=== PATIENT | female | born 1945 | race Caucasian/White ===

== ENCOUNTER → 2019-03-18 09:37 | Outpatient (CLI) | payer MEDICARE, SELFPAY ==
[2019-03-18 11:03] LABS: Alanine Aminotransferase 20 IU/L (9-52); Aspartate Aminotransferase 23 IU/L (14-36); BUN Creatinine Ratio 26.7 (6-22); Blood Urea Nitrogen 24 mg/dL (7-17); Calcium 9.5 mg/dL (8.4-10.2); Carbon Dioxide 29 mmol/L (22-32); Chloride 104 mmol/L (98-107); Cholesterol 265 mg/dL (140-199); Estimated Glomerular Filt Rate > 60.0 mL/min (>60); Glucose 89 mg/dL (80-110); HDL Cholesterol 50 mg/dL (40-60); HEMOLYSIS < 15 (0-50); LDL Cholesterol Calculated 158 mg/dL (<100); Potassium 4.6 mmol/L (3.4-5.1); Sodium 139 mmol/L (137-145); Triglycerides 284 mg/dL (35-150)
== END ==
PROVIDERS: Visit Provider Internal Medicine Cardiovascular Disease
DX: E78.5 Hyperlipidemia, unspecified (principal); I10 Essential (primary) hypertension
CPT/HCPCS: 36415; 80048; 80061; 84450; 84460

== ENCOUNTER 2019-08-31 18:50 | Emergency (ER) | payer MEDICARE, SELFPAY ==
[2019-08-31 18:58] VITALS: BP 194/67; PULSE 72; RESP 16; TEMP 36.5; O2SAT 99; BMI 27.4
--- NOTE | 2019-08-31 19:00 | DI.RAD.S_ITS ---
PROCEDURE: XR SHOULDER RT MIN 2V INDICATIONS: popped shoulder out lifting TECHNIQUE: 3 views of the shoulder were acquired. COMPARISON: [facility], , SHOULDER MINIMUM 2VIEW RIGHT, 01/21/2014, 15:37. FINDINGS: Bones: No fractures or dislocations. No suspicious bony lesions. Visualized ribs appear intact. Glenohumeral joint degenerative change. Soft tissues: No suspicious soft tissue calcifications. Calcific tendinosis of the supraspinatus region. IMPRESSION: No evidence acute fracture or dislocation. Glenohumeral joint degenerative change. Calcific tendinosis. Dictated by: Marty Parnell M.D. on 08/31/2019 at 19:18 Approved by: Marty Parnell M.D. on 08/31/2019 at 19:22
--- NOTE | 2019-08-31 19:01 | PC.NURSE ---
Pt BP noted to be elevated. reports she did not take her lisinopril or metoprolol today.
--- NOTE | 2019-08-31 19:23 | ED.GENADULT ---
HPI - General Adult General Chief complaint: Extremity Injury, Upper Stated complaint: states she popped her right shoulder out Time Seen by Provider: 08/31/19 18:59 Source: patient Mode of arrival: Ambulatory Limitations: no limitations History of Present Illness HPI narrative: 74-year-old female here for evaluation of right shoulder pain. She states she has injured this shoulder in the past. 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 No specific trauma. No prior surgeries. She states that for some time now her shoulder ?popped out? and when she is able to bend over and do which she describes as pendulum swings to get it to ?go back in ?she is getting some paresthesias down her right arm. Related Data Home Medications Medication Instructions Recorded Confirmed CA PANTOTHENATE/FOLIC ACID/VIT 1 tab PO QDAY #0 12/03/12 (MULTIVITAMIN) loratadine [Claritin] 10 mg PO QDAYP #0 12/03/12 aspirin 81 mg PO QDAY #0 12/17/12 atorvastatin [Lipitor] 40 mg PO HS #0 12/17/12 metoprolol tartrate 25 mg PO BID #0 12/17/12 lisinopril 2.5 mg PO QDAY #0 12/19/12 Allergies Allergy/AdvReac Type Severity Reaction Status Date / Time Pain Medication Allergy Intermediate Nausea and Uncoded 01/17/18 12:24 vomiting CODEINE Allergy Mild N/V DIZZY Uncoded 01/17/18 12:24 From VICODIN Allergy Mild N/V,DIZZY Uncoded 01/17/18 12:24 Review of Systems Constitutional Constitutional: Denies fever(s) Cardiovascular Cardiovascular: Denies chest pain and Denies dyspnea Respiratory Respiratory: Denies dyspnea Musculoskeletal Comments: Right shoulder pain Integumentary/Breasts Skin/Breast: Denies rash Neurologic Comments: Paresthesias down the right arm Hematologic/Lymphatic Hematologic/Lymphatic: Denies easy bleeding and Denies easy bruising Patient History Medical History Heart palpitations (Inactive) Social History marital status: lives independently: Yes Exam Initial Vital Signs Initial Vital Signs: Vital Signs Temperature 97.7 F 08/31/19 18:58 Pulse Rate 72 08/31/19 18:58 Respiratory Rate 16 08/31/19 18:58 Blood Pressure 194/67 H 08/31/19 18:58 Pulse Oximetry 99 08/31/19 18:58 Const General: cooperative and comfortable Orientation: alert, awake and oriented x3 HENMT Head: normal to inspection and normocephalic Resp Effort & Inspection: normal respiratory effort Cardio Rate: regular rate Skin Rashes: no rashes Extrem Other: Patient does have full range of motion of her right shoulder but does have some discomfort with abduction Psych Appearance: grossly normal and well kempt Course Orders Ordered: ED Orders 08/31/19 19:00 XR shoulder RT min 2V Stat Vital Signs Vital signs: Vital Signs - 8 hr 08/31/19 18:58 Temperature 97.7 F Pulse Rate 72 Respiratory Rate 16 Blood Pressure 194/67 H Pulse Oximetry 99 Medical Decision Making Imaging Data Shoulder x-ray: Radiologist's impression: [address] [address] XRay Report Signed Patient: Radha Ordoñez [facility]#: [id number] : 7Acct:[id number] Age/Sex: 74 / FDate of Service: 08/31/19 Loc: ED Accession Number: [id number] Procedure: XR shoulder RT min 2V Ordering Provider: Raza Cheung D.O. PROCEDURE: XR SHOULDER RT MIN 2V INDICATIONS: popped shoulder out lifting TECHNIQUE: 3 views of the shoulder were acquired. COMPARISON: [facility], , SHOULDER MINIMUM 2VIEW RIGHT, 01/21/2014, 15:37. FINDINGS: Bones: No fractures or dislocations. No suspicious bony lesions. Visualized ribs appear intact. Glenohumeral joint degenerative change. Soft tissues: No suspicious soft tissue calcifications. Calcific tendinosis of the supraspinatus region. IMPRESSION: No evidence acute fracture or dislocation. Glenohumeral joint degenerative change. Calcific tendinosis. Dictated by: Marty Parnell M.D. on 08/31/2019 at 19:18 Approved by: Marty Parnell M.D. on 08/31/2019 at 19:22 MDM Narrative Medical decision making narrative: X-ray showed no fractures or dislocations. Patient seems surprised by this. I do suspect given her history that she has soft tissue injury potentially even a labral tear rotator cuff injury. Did inform her that she needed an MRI to further evaluate this. Unfortunately we are unable to obtain this had the emergency department. She was instructed she needed contact her primary provider for follow-up. She was given return precautions. She expressed understanding and agreement plan. Discharge Plan Departure Patient Disposition: Home Clinical Impression: Right shoulder pain Qualifiers: Chronicity: unspecified Qualified Code(s): M25.511 - Pain in right shoulder Instructions: DI for Shoulder Sprain Activity Restrictions/Additional Instructions: I recommend that on Monday you contact the health human resources partner at [phone]. You can also contact the doctor [facility] to establish a new provider. I do recommend that you obtain an MRI of her right shoulder. Return to the emergency department for any new symptoms Prescriptions: No Action CA PANTOTHENATE/FOLIC ACID/VIT (MULTIVITAMIN) 1 tab PO QDAY Qty: 0 RF: 0 loratadine [Claritin] 10 MG tablet 10 mg PO QDAYP Qty: 0 RF: 0 atorvastatin [Lipitor] 40 MG tablet 40 mg PO HS Qty: 0 RF: 0 aspirin 81 MG tablet,delayed release (DR/EC) 81 mg PO QDAY Qty: 0 RF: 0 metoprolol tartrate 25 MG tablet 25 mg PO BID Qty: 0 RF: 0 lisinopril 2.5 MG tablet 2.5 mg PO QDAY Qty: 0 RF: 0
[2019-08-31 19:54] VITALS: BP 151/91; PULSE 70; RESP 18; O2SAT 98
== END 2019-08-31 19:54 | disposition home or self-care (01) ==
PROVIDERS: Emergency Provider Emergency Medicine
DX: M25.511 Pain in right shoulder (principal)
CPT/HCPCS: 73030; 99282; 99283

== ENCOUNTER 2019-11-28 14:12 | Emergency (ER) | payer MEDICARE, SELFPAY ==
[2019-11-28 14:20] VITALS: BP 193/77; PULSE 67; RESP 16; TEMP 36.6; O2SAT 99; BMI 27.4
--- NOTE | 2019-11-28 14:45 | DI.CT.S_ITS ---
PROCEDURE: CT HEAD/BRAIN WO CON INDICATIONS: numbness, tingling TECHNIQUE: Noncontrast 4.5 mm thick angled axial sections acquired from the foramen magnum to the vertex, with coronal and sagittal reformats. For radiation dose reduction, the following was used: automated exposure control, adjustment of mA and/or kV according to patient size. COMPARISON: None. FINDINGS: Image quality: Excellent. CSF spaces: Basal cisterns are patent. No extra-axial fluid collections. The ventricles are symmetric in size and shape. Brain: No intracranial bleeds or masses. There is mild cerebral volume loss for age, with resultant ventricular and sulcal prominence. There are mild periventricular and deep white matter chronic small vessel ischemic changes. There is intracranial internal carotid artery and vertebral artery atherosclerosis. Skull and face: Calvarium and visualized facial bones appear intact, without suspicious lesions. Sinuses: Visualized sinuses and mastoids are clear. IMPRESSION: No acute intracranial disease process. Dictated by: Graciela Duvall MD, PhD on 11/28/2019 at 15:05 Approved by: Graciela Duvall MD, PhD on 11/28/2019 at 15:07
[2019-11-28 15:23] VITALS: PULSE 80
[2019-11-28 15:23] LABS: Add Manual Diff / Slide Review NO; Basophils Absolute Auto 0 /uL (0-100); Basophils Percent Auto 0.7 % (0-2); Eosinophils Absolute Auto 200 /uL (0-450); Eosinophils Percent Auto 2.9 % (2-4); Hematocrit 33.3 % (36-46); Hemoglobin 11.4 g/dL (12.0-16.0); Lymphocytes Absolute Auto 1500 /uL (1100-4500); Lymphocytes Percent Auto 26.3 % (25-40); Mean Corpuscular HGB Conc 34.3 % (30-36); Mean Corpuscular Hemoglobin 29.5 PG (26-34); Mean Corpuscular Volume 85.8 fL (80-100); Monocytes Absolute Auto 300 /uL (0-900); Monocytes Percent Auto 5.8 % (3-14); Neutrophils Absolute Auto 3700 /uL (1500-7000); Neutrophils Percent Auto 64.3 % (50-75); Platelet Count 303 X10^3/uL (150-400); Red Blood Cell Count 3.88 X10^6/uL (4.0-5.2); Red Cell Distribution Width 12.8 % (11.6-14.8); White Blood Cell Count 5.7 X10^3/uL (4.5-11.0)
[2019-11-28 15:30] LABS: BUN Creatinine Ratio 21.7 (6-22); Blood Urea Nitrogen 26 mg/dL (7-17); Calcium 9.4 mg/dL (8.4-10.2); Carbon Dioxide 30 mmol/L (22-32); Chloride 106 mmol/L (98-107); Estimated Glomerular Filt Rate 44.2 mL/min (>60); Glucose 99 mg/dL (80-110); HEMOLYSIS < 15 (0-50); Potassium 4.6 mmol/L (3.4-5.1); Sodium 142 mmol/L (137-145)
--- NOTE | 2019-11-28 16:16 | ED.EXTPRO ---
HPI - Extremity Problem General Chief complaint: Extremity Problem,Nontraumatic Stated complaint: feet are numbing and are blue and past heart issue Time Seen by Provider: 11/28/19 14:23 Source: patient Mode of arrival: Ambulatory Limitations: no limitations History of Present Illness HPI Narrative: 74-year-old female nonsmoker with history of hypertension, hyperlipidemia coronary artery disease has 1 coronary stent and presents with her for evaluation of some gradually increasing episodes of bilateral foot numbness and tingling and occasional episodes of discoloration that seemed to occur after standing or sitting for long periods. She denies any focal neurologic findings such as blurred vision, trouble with speech or extremity weakness. She denies chest pain or shortness of breath. She has had no nausea vomiting or diarrhea. She denies any new medications or dietary change. MD Complaint: other Onset (ago): day(s) Pain Consistency: intermittent Location: left, right and lower extremity Radiation: none Associated symptoms: denies other symptoms Related Data Home Medications Medication Instructions Recorded Confirmed CA PANTOTHENATE/FOLIC ACID/VIT 1 tab PO QDAY #0 12/03/12 (MULTIVITAMIN) loratadine [Claritin] 10 mg PO QDAYP #0 12/03/12 aspirin 81 mg PO QDAY #0 12/17/12 atorvastatin [Lipitor] 40 mg PO HS #0 12/17/12 metoprolol tartrate 25 mg PO BID #0 12/17/12 lisinopril 2.5 mg PO QDAY #0 12/19/12 Allergies Allergy/AdvReac Type Severity Reaction Status Date / Time acetaminophen [From Vicodin] Allergy Verified 11/28/19 14:26 codeine Allergy Verified 11/28/19 14:26 hydrocodone [From Vicodin] Allergy Verified 11/28/19 14:26 Review of Systems Constitutional Constitutional: Denies chills, Denies fatigue, Denies fever(s), Denies frequent falls, Denies lethargy and Denies weakness Eyes Eyes: Denies change in vision, Denies eye discharge, Denies irritation and Denies loss of vision ENT Ears, Nose, Mouth, and Throat: Denies change in voice, Denies dizziness, Denies neck pain, Denies sore throat and Denies throat swelling Cardiovascular Cardiovascular: Denies chest pain, Denies irregular heart rhythm, Denies lightheadedness, Denies palpitations, Denies dyspnea, Denies dyspnea on exertion and Denies orthopnea Respiratory Respiratory: Denies cough, Denies dyspnea, Denies dyspnea on exertion and Denies wheezing Gastrointestinal Gastrointestinal: Denies abdominal pain, Denies change in bowel habits, Denies diarrhea, Denies nausea and Denies vomiting Genitourinary Genitourinary: Denies hematuria, Denies flank pain, Denies urinary incontinence and Denies urinary urgency Musculoskeletal Musculoskeletal: Denies back pain, Denies muscle weakness, Denies neck pain, Denies numbness and Reports tingling Integumentary/Breasts Skin/Breast: Denies pruritus, Denies erythema, Denies rash and Denies wounds Neurologic Neurologic: Denies behavioral changes, Denies confusion, Denies dizziness, Denies frequent falls, Denies loss of vision, Denies numbness, Reports tingling and Denies weakness Psychiatric Psychiatric: Denies anxiety, Denies behavioral changes, Denies confusion, Denies depression, Denies homicidal ideation and Denies suicidal ideation Endocrine Endocrine: Denies fatigue, Denies flushing and Denies palpitations Hematologic/Lymphatic Hematologic/Lymphatic: Denies easy bruising Allergic/Immunologic Allergic/Immunologic: Denies urticaria, Denies throat swelling and Denies wheezing Patient History Medical History Heart palpitations (Inactive) Social History marital status: lives independently: Yes Smoking Status: Unknown if ever smoked Smoking Status: Unknown if ever smoked alcohol intake frequency: holidays/special occasions only Substance Use Type: does not use Exam Narrative Exam Narrative: GENERAL: [74] year old patient appears stated age. Well-nourished, well-developed patient, in mild distress. HEAD: Atraumatic. Normocephalic. EYES: Pupils equal round and reactive. Extraocular motions intact. No scleral icterus. No injection or drainage. ENT: Nose without bleeding, purulent drainage. Throat without erythema, tonsillar hypertrophy or exudate. Airway patent. NECK: Trachea midline. Non tender CARDIOVASCULAR: Regular rate and rhythm without murmurs, gallops, or rubs. RESPIRATORY: Clear to auscultation. Breath sounds equal bilaterally. No wheezes, rales, or rhonchi. GASTROINTESTINAL: Abdomen soft, non-tender, nondistended. EXTREMITIES: No edema or joint tenderness. BACK: Nontender without deformity or crepitance. No flank tenderness. NEURO: AOx3. SKIN: No rash or erythema of visible areas NIH Stroke Scale 1a. LOC: Patient is alert and keenly responsive (0) 1b. LOC Questions: Patient answers both LOC questions accurately (0) 1c. LOC Commands: Patient performs both tasks correctly (0) 2. Best Gaze: Normal (0) 3. Visual: No visual loss (0) 4. Facial palsy: Normal symmetrical movements (0) 5. Motor arm: No drift (0) 6. Motor leg: No drift (0) 7. Limb ataxia: Absent (0) 8. Sensory: Normal (0) 9. Best language: No aphasia; normal (0) 10. Dysarthria: Normal (0) 11. Extinction and inattention: No abnormality (0) NIHSS: 0 Initial Vital Signs Initial Vital Signs: Vital Signs Temperature 97.8 F 11/28/19 14:20 Pulse Rate 67 11/28/19 14:20 Respiratory Rate 16 11/28/19 14:20 Blood Pressure 193/77 H 11/28/19 14:20 Pulse Oximetry 99 11/28/19 14:20 Course Orders Ordered: ED Orders 11/28/19 14:45 CT head/brain wo con Stat 11/28/19 15:05 Basic Metabolic Panel Stat Complete Blood Count AUTO DIFF Stat Vital Signs Vital signs: Vital Signs - 8 hr 11/28/19 14:20 11/28/19 15:23 11/28/19 16:19 Temperature 97.8 F Pulse Rate 67 56 L Pulse Rate [Bilateral Dorsalis Pedis] 80 Respiratory Rate 16 23 Blood Pressure 193/77 H Blood Pressure [Left Arm] 141/63 H Pulse Oximetry 99 100 11/28/19 16:58 Temperature Pulse Rate 61 Pulse Rate [Bilateral Dorsalis Pedis] Respiratory Rate Blood Pressure Blood Pressure [Left Arm] 142/64 H Pulse Oximetry 100 MDM - Extremity (Nontraumatic) Lab Data Result diagrams: 11/28/19 15:05 11/28/19 15:05 Labs: Lab Results 11/28/19 11/28/19 Range/Units 15:05 15:05 WBC 5.7 (4.5-11.0) X10^3/uL RBC 3.88 L (4.0-5.2) X10^6/uL Hgb 11.4 L (12.0-16.0) g/dL Hct 33.3 L (36-46) % MCV 85.8 (80-100) fL MCH 29.5 (26-34) PG MCHC 34.3 (30-36) % RDW 12.8 (11.6-14.8) % Plt Count 303 (150-400) X10^3/uL Neut % (Auto) 64.3 (50-75) % Lymph % (Auto) 26.3 (25-40) % Stephens % (Auto) 5.8 (3-14) % Eos % (Auto) 2.9 (2-4) % Baso % (Auto) 0.7 (0-2) % Neut # (Auto) 3700 (4778-3452) /uL Lymph # (Auto) 1500 (3148-1134) /uL Stephens # (Auto) 300 (0-900) /uL Eos # (Auto) 200 (0-450) /uL Baso # (Auto) 0 (0-100) /uL Sodium 142 (137-145) mmol/L Potassium 4.6 (3.4-5.1) mmol/L Chloride 106 (98-107) mmol/L Carbon Dioxide 30 (22-32) mmol/L BUN 26 H (7-17) mg/dL Creatinine 1.20 H (0.52-1.04) mg/dL Estimated GFR 44.2 L (>60) mL/min BUN/Creatinine Ratio 21.7 (6-22) Glucose 99 (80-110) mg/dL Calcium 9.4 (8.4-10.2) mg/dL Imaging Data CT scan - head: Radiologist's Impression: Chart Viewer Diagnostics DATE TYPE STATUS AUTHOR Hx 11/28/19 14:45 Graciela Duvall 08/31/19 19:00 Marty Parnell Linda A 74, F0 1945 [facility] ER, Main ED R07 157.48cm 68.039kg BMI: 27.4kg/m? Extremity Problem,Nontraumatic Search Chart No Data to Display NF - Not included in interaction checking No Data to Display Today 15:23 Radha Ordoñez 74 F 1945 [place] [address] CT Scan Report Signed Patient: Radha Ordoñez [facility]#: [id number] : 1945cct:[id number] Age/Sex: 74 / FDate of Service: 11/28/19 Loc: ED Accession Number: [id number] Procedure: CT head/brain wo con Ordering Provider: Hubert Phillips D.O. PROCEDURE: CT HEAD/BRAIN WO CON INDICATIONS: numbness, tingling TECHNIQUE: Noncontrast 4.5 mm thick angled axial sections acquired from the foramen magnum to the vertex, with coronal and sagittal reformats. For radiation dose reduction, the following was used: automated exposure control, adjustment of mA and/or kV according to patient size. COMPARISON: None. FINDINGS: Image quality: Excellent. CSF spaces: Basal cisterns are patent. No extra-axial fluid collections. The ventricles are symmetric in size and shape. Brain: No intracranial bleeds or masses. There is mild cerebral volume loss for age, with resultant ventricular and sulcal prominence. There are mild periventricular and deep white matter chronic small vessel ischemic changes. There is intracranial internal carotid artery and vertebral artery atherosclerosis. Skull and face: Calvarium and visualized facial bones appear intact, without suspicious lesions. Sinuses: Visualized sinuses and mastoids are clear. IMPRESSION: No acute intracranial disease process. Dictated by: Graciela Duvall MD, PhD on 11/28/2019 at 15:05 Approved by: Graciela Duvall MD, PhD on 11/28/2019 at 15:07 [facility] Narrative Medical decision making narrative: Multiple etiologies for patient's symptoms considered including: [Peripheral neuropathy versus electrolyte abnormality versus chronic peripheral vascular disease versus other] Patient's symptoms improved or duration of stay with above-stated therapies. Findings and discharge diagnosis discussed with patient/family followed by verbalization of understanding Return precautions discussed with patient/family whom verbalize understanding. Discharge Plan Departure Patient Disposition: Home Clinical Impression: Peripheral neuropathy Qualifiers: Peripheral neuropathy type: polyneuropathy, unspecified Qualified Code(s): G62.9 - Polyneuropathy, unspecified Discharge Date/Time: 11/28/19 17:15 Instructions: DI for Numbness/tingling Activity Restrictions/Additional Instructions: *You have been diagnosed with [episodes of bilateral lower extremity numbness and tingling] *What to do: *Take medications as directed *Follow up with your primary care provider in 2-3 days, call for an appointment. Let them know you were seen in the Emergency Department and that we ask that you be seen in follow up *Return to ER if you should have any new, worsening or concerning symptoms Prescriptions: No Action CA PANTOTHENATE/FOLIC ACID/VIT (MULTIVITAMIN) 1 tab PO QDAY Qty: 0 RF: 0 loratadine [Claritin] 10 MG tablet 10 mg PO QDAYP Qty: 0 RF: 0 atorvastatin [Lipitor] 40 MG tablet 40 mg PO HS Qty: 0 RF: 0 aspirin 81 MG tablet,delayed release (DR/EC) 81 mg PO QDAY Qty: 0 RF: 0 metoprolol tartrate 25 MG tablet 25 mg PO BID Qty: 0 RF: 0 lisinopril 2.5 MG tablet 2.5 mg PO QDAY Qty: 0 RF: 0 Referrals: [facility] [Outside]
[2019-11-28 16:19] VITALS: BP 141/63; PULSE 56; RESP 23; O2SAT 100
[2019-11-28 16:58] VITALS: BP 142/64; PULSE 61; O2SAT 100
== END 2019-11-28 17:15 | disposition home or self-care (01) ==
PROVIDERS: Emergency Provider Emergency Medicine
DX: G62.9 Polyneuropathy, unspecified (principal); I10 Essential (primary) hypertension; E78.5 Hyperlipidemia, unspecified; I25.10 Atherosclerotic heart disease of native coronary artery without angina pectoris; R20.0 Anesthesia of skin
CPT/HCPCS: 36415; 70450; 80048; 85025; 93005; 99284; 99285

== ENCOUNTER → 2021-03-10 12:26 | Outpatient (CLI) | payer MEDICARE, SELFPAY ==
--- NOTE | 2021-03-10 | DI.MRI.S_ITS ---
PROCEDURE: MR KNEE LT WO CON INDICATIONS: Unspecified internal derangement of left knee TECHNIQUE: Noncontrast sagittal PD fast spin echo and T2 fast spin echo with fat saturation, sagittal 3-D FLASH with fat saturation; coronal T1 spin echo and PD fast spin echo with fat saturation, and axial PD fast spin echo with fat saturation through the knee. COMPARISON: [facility] Vernon Andrews, CR, XR KNEE 4+ VIEWS LEFT, 03/01/2021, 13:41. FINDINGS: Image quality: Excellent. Menisci: There is complex tearing of the medial meniscus. A radial tear is seen at the posterior root attachment of the medial meniscus with mild extrusion and intrasubstance degeneration involving the meniscal body. Additional shallow radial tear is seen in the posterior horn. The lateral meniscus is intact. Cruciate ligaments: The anterior and posterior cruciate ligaments appear intact. Medial structures: The medial collateral ligament appears intact. The semimembranosus tendon insertions and meniscocapsular junction appear intact. Visualized portions of the pes anserinus tendons appear normal. No abnormal bursal fluid. Lateral structures: The lateral collateral ligament, long and short heads of the biceps femoris tendon appear intact. The popliteus tendon appears intact. No signs of posterolateral corner injury. Iliotibial band appears normal. Anterior structures: The quadriceps and patellar tendons appear intact. An enthesophyte is seen at the distal quadriceps tendon insertion. 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 The tibial tubercle-trochlear groove distance is within normal limits. No edema in the infrapatellar fat pad. Bones and cartilage: There is no acute trabecular bone injury. Mild cartilage thinning is seen in the weight-bearing portion of the medial femorotibial compartment. The lateral and anterior compartment articular cartilages are intact. Joint space: There is a small joint effusion. A small medial popliteal cyst is present. IMPRESSION: 1. Radial tear at the posterior root attachment of the medial meniscus with mild extrusion and intrasubstance degeneration in the meniscal body. An additional smaller shallow radial tear is seen at the posterior horn of the medial meniscus. 2. No acute trabecular bone injury. The cruciate and collateral ligaments are intact. 3. Mild grade 2 cartilage thinning in the weight-bearing portion of the medial femorotibial compartment. 4. 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 The tibial tubercle-trochlear groove distance is within normal limits. 5. Small joint effusion. Small medial popliteal cyst. Dictated by: Brett Mulligan M.D. on 03/10/2021 at 14:26 Approved by: Brett Mulligan M.D. on 03/10/2021 at 15:00
== END ==
PROVIDERS: Referring Provider Orthopaedic Surgery; Visit Provider Orthopaedic Surgery
DX: M23.92 Unspecified internal derangement of left knee (principal)
CPT/HCPCS: 73721

== ENCOUNTER → 2024-05-23 08:27 | Outpatient (CLI) | payer MEDICARE, SELFPAY ==
[2024-05-23 09:33] LABS: Alanine Aminotransferase 22 IU/L (<35); Albumin 3.8 g/dL (3.5-5.0); Albumin Globulin Ratio 1.1 (1.0-2.8); Alkaline Phosphatase 75 U/L (38-126); Aspartate Aminotransferase 21 IU/L (14-36); BUN Creatinine Ratio 20.7 (6-22); Bilirubin Total 0.4 mg/dL (0.2-1.3); Blood Urea Nitrogen 25 mg/dL (7-17); Calcium 9.3 mg/dL (8.4-10.2); Carbon Dioxide 26 mmol/L (22-32); Chloride 109 mmol/L (98-107); Cholesterol 145 mg/dL (140-199); Estimated Glomerular Filt Rate 46 mL/min (>60); Globulin 3.5 g/dL (1.7-4.1); Glucose 105 mg/dL (80-110); HDL Cholesterol 56 mg/dL (40-60); HEMOLYSIS < 15 (0-50); LDL Cholesterol Calculated 59 mg/dL (<100); Potassium 4.6 mmol/L (3.4-5.1); Sodium 140 mmol/L (137-145); Total Protein 7.3 g/dL (6.3-8.2); Triglycerides 150 mg/dL (35-150)
== END ==
PROVIDERS: Referring Provider Internal Medicine Cardiovascular Disease; Visit Provider Internal Medicine Cardiovascular Disease
DX: E78.5 Hyperlipidemia, unspecified (principal); I10 Essential (primary) hypertension; I25.10 Atherosclerotic heart disease of native coronary artery without angina pectoris
CPT/HCPCS: 36415; 80053; 80061